=== PATIENT | female | born 1970 | race Hispanic/Latino ===

== ENCOUNTER 2022-04-08 09:40 | Emergency (ER) | payer OTHER ==
[2022-04-08] MEDS ORDERED: HYDROCODONE/APAP 5/325 MG TAB ONE (10:49)
--- NOTE | 2022-04-08 11:41 | RAD REPORT ---
EXAM DESCRIPTION: RAD - Ankle Left 3 View - 04/08/2022 10:29 am CLINICAL HISTORY: Pain. Rolling ankle COMPARISON: None. FINDINGS: Three views of the left ankle. Minimally displaced fracture at the tip of the lateral malleolus, seen only on the obliques view. No evidence of dislocation. Joint alignment is maintained, and the medial and lateral ankle clear spaces are preserved. No joint effusion seen. No joint space narrowing. Pronounced soft tissue swelling mos t notably at the lateral malleolus. IMPRESSION: Minimally displaced fracture at the tip of the lateral malleolus.
--- NOTE | 2022-04-08 11:46 | EDPHYS ---
Physician Documentation [facility] Name: Geri Lucas Age: 52 yrs Sex: Female : 1970 Arrival Date: 04/08/2022 Time: 09:41 Bed 12 Private MD: ED Physician Charity Coronado HPI: 04/08 10:15 This 52 yrs old Female presents to ER via Wheelchair with complaints of Ankle snw Injury. 10:15 The patient presents with decreased range of motion, pain, that is acute, swelling, snw tenderness. The complaints affect the left ankle. Onset: The symptoms/episode began/occurred suddenly, just prior to arrival. Context: The problem was sustained on a street or driveway, resulted from a mis-step by the patient, on a curb, The mechanism of injury involved inversion of the affected ankle. The patient is unable to bear weight. must have assistance. Associated signs and symptoms: The patient has no apparent associated signs or symptoms. Severity of symptoms: At their worst the symptoms were moderate, severe. The patient has not experienced similar symptoms in the past. It is unknown whether or not the patient has recently seen a physician. pt states she took 800mg Motrin post injury. Historical: - Allergies: 10:02 No Known Allergies; ss - PMHx: 10:02 None; ss - PSHx: 10:02 Cholecystectomy; Appendectomy; tubal ligation; ss - Immunization history:: Client reports receiving the 2nd dose of the Covid vaccine. - Social history:: Smoking status: Patient denies any tobacco usage or history of. ROS: 10:14 Constitutional: Negative for fever, chills, and weight loss, Eyes: Negative for injury, snw pain, redness, and discharge, ENT: Negative for injury, pain, and discharge, Neck: Negative for injury, pain, and swelling, Cardiovascular: Negative for chest pain, palpitations, and edema, Respiratory: Negative for shortness of breath, cough, wheezing, and pleuritic chest pain, Abdomen/GI: Negative for abdominal pain, nausea, vomiting, diarrhea, and constipation, Back: Negative for injury and pain, : Negative for injury, bleeding, discharge, and swelling, Skin: Negative for injury, rash, and discoloration, Neuro: Negative for headache, weakness, numbness, tingling, and seizure, Psych: Negative for depression, anxiety, suicide ideation, homicidal ideation, and hallucinations. 10:14 MS/extremity: Positive for injury or acute deformity, decreased range of motion, pain, swelling, tenderness, of the left lateral malleolus. Exam: 10:14 Constitutional: This is a well developed, well nourished patient who is awake, alert, snw and in no acute distress. Head/Face: Normocephalic, atraumatic. Eyes: Pupils equal round and reactive to light, extra-ocular motions intact. Lids and lashes normal. Conjunctiva and sclera are non-icteric and not injected. Cornea within normal limits. Periorbital areas with no swelling, redness, or edema. ENT: Nares patent. No nasal discharge, no septal abnormalities noted. Tympanic membranes are normal and external auditory canals are clear. Oropharynx with no redness, swelling, or masses, exudates, or evidence of obstruction, uvula midline. Mucous membranes moist. Neck: Trachea midline, no thyromegaly or masses palpated, and no cervical lymphadenopathy. Supple, full range of motion without nuchal rigidity, or vertebral point tenderness. No Meningismus. Chest/axilla: Normal chest wall appearance and motion. Nontender with no deformity. No lesions are appreciated. Cardiovascular: Regular rate and rhythm with a normal S1 and S2. No gallops, murmurs, or rubs. Normal PMI, no JVD. No pulse deficits. Respiratory: Lungs have equal breath sounds bilaterally, clear to auscultation and percussion. No rales, rhonchi or wheezes noted. No increased work of breathing, no retractions or nasal flaring. Abdomen/GI: Soft, non-tender, with normal bowel sounds. No distension or tympany. No guarding or rebound. No evidence of tenderness throughout. Back: No spinal tenderness. No costovertebral tenderness. Full range of motion. Skin: Warm, dry with normal turgor. Normal color with no rashes, no lesions, and no evidence of cellulitis. Neuro: Awake and alert, GCS 15, oriented to person, place, time, and situation. Cranial nerves II-XII grossly intact. Motor strength 5/5 in all extremities. Sensory grossly intact. Cerebellar exam normal. Normal gait. Psych: Awake, alert, with orientation to person, place and time. Behavior, mood, and affect are within normal limits. 10:14 Musculoskeletal/extremity: Extremities: grossly normal except: noted in the left lateral malleolus: decreased ROM, deformity, swelling, tenderness. Vital Signs: 09:41 BP 103 / 69; Pulse 63; Resp 20; Temp 98.2(TE); Pulse Ox 100% on R/A; Weight 83.91 kg; ss Height 5 ft. 4 in. (162.56 cm); Pain 11/14; 09:41 Body Mass Index 31.75 (83.91 kg, 162.56 cm) ss MDM: 09:44 Patient medically screened. snw 11:18 Differential diagnosis: fracture, sprain, arthritis, gout. Data reviewed: vital signs, snw nurses notes, radiologic studies, plain films. Independent interpretation of the following test(s) in the Emergency Department X-Ray: My interpretation is ankle mortis maintained, lateral soft tissue edema, possible medial cortex interruption at distal tibia. Counseling: I had a detailed discussion with the patient and/or guardian regarding: the historical points, exam findings, and any diagnostic results supporting the discharge/admit diagnosis, radiology results, the need for outpatient follow up, to return to the emergency department if symptoms worsen or persist or if there are any questions or concerns that arise at home. Response to treatment: the patient's symptoms have markedly improved after treatment. Special discussion: Based on the history and exam findings, there is no indication for further emergent testing or inpatient evaluation. I discussed with the patient/guardian the need to see the orthopedic surgeon for further evaluation of the symptoms. I discussed with the patient/guardian the need to see the primary care provider for further evaluation of the symptoms. 04/08 10:01 Order name: Ankle Left 3 View XRAY snw 04/08 10:36 Order name: Walking boot; Complete Time: 10:56 snw 04/08 11:41 Order name: RAD; Complete Time: 11:43 EDMS Administered Medications: 10:49 Drug: [place] (HYDROcodone-acetaminophen) 5 mg-325 mg 1 tabs Route: PO; ss Disposition Summary: 04/08/22 11:46 Discharge Ordered Location: Home snw Condition: Stable snw Diagnosis - Nondisplaced fracture of lateral malleolus of left fibula snw - Sprain of ankle snw Followup: snw - With: Emergency Department - When: As needed - Reason: Worsening of condition Followup: snw - With: Private Physician - When: 2 - 3 days - Reason: Recheck today's complaints, Continuance of care, Re-evaluation by your physician Discharge Instructions: - Discharge Summary Sheet snw - Ankle Sprain snw - RICE Therapy for Routine Care of Injuries snw - Ankle Pain snw - How to Use Cold Therapy snw - Walking Boot, Adult snw Forms: - Medication Reconciliation Form snw - Thank You Letter snw - Antibiotic Education snw - Prescription Opioid Use snw Prescriptions: - Mobic 7.5 mg Oral Tablet - take 1 tablet by ORAL route once daily take with food; 20 tablet; Refills: 0, snw Product Selection Permitted - Tramadol 50 mg Oral Tablet - take 1 tablet by ORAL route every 8 hours as needed; 12 tablet; Refills: 0, snw Product Selection Permitted Signatures: Dispatcher [employer] Chantel Javier, [employer]ER-C [employer]ER-Liliw Deena Moncada RN RN ss
--- NOTE | 2022-04-08 11:46 | ER ---
Nurse's Notes [facility] Name: Geri Lucas Age: 52 yrs Sex: Female : 1970 Arrival Date: 04/08/2022 Time: 09:41 Bed 12 Private MD: Diagnosis: Nondisplaced fracture of lateral malleolus of left fibula;Sprain of ankle Presentation: 04/08 09:41 Chief complaint: Patient states: L ankle pain that began after rolling ankle just prior ss to arrival. Pt self administered Ibuprofen 800 mg just before coming to the ED. Coronavirus screen: Client denies travel out of the [place] in the last 14 days. Ebola Screen: Patient denies exposure to infectious person. Patient denies travel to an Ebola-affected area in the 21 days before illness onset. Initial Sepsis Screen: Does the patient meet any 2 criteria? No. Patient's initial sepsis screen is negative. Does the patient have a suspected source of infection? No. Patient's initial sepsis screen is negative. Risk Assessment: Do you want to hurt yourself or someone else? Patient reports no desire to harm self or others. Onset of symptoms was April 08, 2022. 09:41 Method Of Arrival: Wheelchair ss 09:41 Acuity: GABRIEL 3 ss Historical: - Allergies: 10:02 No Known Allergies; ss - PMHx: 10:02 None; ss - PSHx: 10:02 Cholecystectomy; Appendectomy; tubal ligation; ss - Immunization history:: Client reports receiving the 2nd dose of the Covid vaccine. - Social history:: Smoking status: Patient denies any tobacco usage or history of. Screenin:06 [facility] ED Fall Risk Assessment (Adult) History of falling in the last 3 months, ss including since admission No falls in past 3 months (0 pts). Abuse screen: Denies threats or abuse. Denies injuries from another. Nutritional screening: No deficits noted. Tuberculosis screening: Never had TB. Assessment: 10:06 General: Appears uncomfortable, Behavior is cooperative, anxious. Pain: Complains of ss pain in L ankle Pain currently is 10 out of 10 on a pain scale. Quality of pain is described as aching, tender, Pain began suddenly, Is continuous. Neuro: Level of Consciousness is awake, alert, obeys commands. Cardiovascular: Capillary refill < 3 seconds is brisk in bilateral fingers. Respiratory: Airway is patent Respiratory effort is even, unlabored, Respiratory pattern is regular, symmetrical. EENT: Nares are clear. Derm: Skin is intact, is healthy with good turgor, Skin is dry, Skin is pink, warm \T\ dry. Musculoskeletal: Circulation, motion, and sensation intact. Range of motion: intact in all extremities, Swelling present in L ankle. Vital Signs: 09:41 BP 103 / 69; Pulse 63; Resp 20; Temp 98.2(TE); Pulse Ox 100% on R/A; Weight 83.91 kg; ss Height 5 ft. 4 in. (162.56 cm); Pain 10; 09:41 Body Mass Index 31.75 (83.91 kg, 162.56 cm) ED Course: 09:41 Patient arrived in ED. mr 09:44 Chantel Randolph FNP-C is PHCP. snw 09:44 Charity Coronado MD is Attending Physician. sn 10:01 Triage completed. ss 10:02 Arm band placed on right wrist. ss 10:06 Patient has correct armband on for positive identification. ss 10:06 Wound care: located on left foot ice pack applied. Patient tolerated well. ss 10:49 Deena Moncada, RN is Primary Nurse. ss 10:57 Ortho shoe applied to right foot. ss 12:27 No provider procedures requiring assistance completed. Patient did not have IV access jl7 during this emergency room visit. Administered Medications: 10:49 Drug: [place] (HYDROcodone-acetaminophen) 5 mg-325 mg 1 tabs Route: PO; Medication: 10:06 VIS not applicable for this client. Outcome: 11:46 Discharge ordered by . snw 12:00 Discharged to home ambulatory, with family. jl7 12:00 Condition: stable 12:00 Discharge instructions given to patient, Instructed on discharge instructions, follow up and referral plans. medication usage, Demonstrated understanding of instructions, follow-up care, medications, Prescriptions given X 2. 12:01 Patient left the ED. mb9 Signatures: Chantel Randolph FNP-C FNP-Arleth Soni Mathews mr Deena Moncada RN RN Truman Armijo RN RN jl7 Soni George RN RN mb9 Corrections: (The following items were deleted from the chart) 10:58 10:06 Wound care: located on L ankle ice pack applied. Patient tolerated well. ss ss
[2022-04-08 13:13] VITALS: BP 103/69; TEMP 98.2; O2SAT 100
== END 2022-04-08 12:01 | disposition home or self-care (01) ==
LOC: ER 09:40
DX: S82.65XA Nondisplaced fracture of lateral malleolus of left fibula, initial encounter for closed fracture (principal); S93.402A Sprain of unspecified ligament of left ankle, initial encounter
CPT/HCPCS: 99284